=== PATIENT | male | born 1955 | race Caucasian/White ===

== ENCOUNTER 2016-12-06 08:29 | Outpatient (CLI) | payer OTHER ==
--- NOTE | 2016-12-06 09:46 | DIAGNOSTIC IMAGING REPORT ---
PROCEDURE: US ABDOMEN ULTRASOUND-LIMITED INDICATION: LIVER FUNCTION ABNORMALITY, FATIGUE, initial encounter TECHNIQUE: Mack scale and color Doppler sonographic images of the abdomen were obtained. COMPARISON: Abdominal ultrasound 05/16/2012 FINDINGS: Study limited by patient's body habitus. Liver measures 20 cm with diffuse increased echogenicity. Cholecystectomy. CBD measures 4 mm. Pancreas not visualized. Visualized aorta is unremarkable. IVC is obscured by bowel gas. Normal hepatopetal flow. Normal right kidney measures 12.4 cm virgie IMPRESSION: 1. Stable hepatomegaly with steatosis 2. Cholecystectomy
== END 2016-12-06 23:00 ==
LOC: US SRH 08:29
DX: R94.5 Abnormal results of liver function studies (principal); R53.83 Other fatigue; Z90.49 Acquired absence of other specified parts of digestive tract